=== PATIENT | male | born 1980 | race African-American/Black ===

== ENCOUNTER 2024-02-07 02:00 | Emergency (ER) | payer MEDICAID ==
[~2024-02-07] VITALS: Ht 188 cm; Wt 122.5 kg
[2024-02-07 02:03] VITALS: BP 130/80; PULSE 87; RESP 18; TEMP 97.6; O2SAT 99
[2024-02-07 02:52] LABS: AMPHETAMINE, URINE POSITIVE ng/ml (NEG <=1000); BARBITURATE, URINE NEGATIVE ng/ml (NEG <=200); BENZODIAZEPINE, URINE NEGATIVE ng/mL (NEG <=200); CANNABINOID, URINE POSITIVE ng/mL (NEG <=50); COCAINE, URINE NEGATIVE ng/mL (NEG <=300); OPIATE, URINE NEGATIVE ng/mL (NEG <=2000); PHENCYCLIDINE SCREEN,URINE NEGATIVE ng/mL (NEG <=25)
[2024-02-07] MEDS ORDERED: AMOX-1230 PO (03:35)
[2024-02-07 03:40] VITALS: BP 130/80; PULSE 87; RESP 18; TEMP 97.6; O2SAT 99
== END 2024-02-07 03:40 | disposition home or self-care (01) ==
LOC: MED 02:00
DX: R42 Dizziness and giddiness (principal); H66.92 Otitis media, unspecified, left ear; F15.129 Other stimulant abuse with intoxication, unspecified; F17.210 Nicotine dependence, cigarettes, uncomplicated; F12.90 Cannabis use, unspecified, uncomplicated; Z79.899 Other long term (current) drug therapy
CPT/HCPCS: 70450; 80305; 82948; 99284